=== PATIENT | male | born 1930 | race Caucasian/White ===

== ENCOUNTER 2017-11-25 22:25 | Inpatient (IN) | payer MEDICARE, OTHER ==
[2017-11-25] MEDS: METHYLPREDNISOLONE 125 MG INJ IV (22:34)
[2017-11-25] MEDS: SOD CHLORIDE 0.9% 500 ML IV (22:34)
[2017-11-25] MEDS: ALBUTEROL 0.5% (NEB) 2.5 MG/0.5 ML AMP INH (22:54)
[2017-11-25] MEDS: IPRATROPIUM (NEB) 0.5 MG/2.5 ML AMP INH (22:54)
[2017-11-25] MEDS: LORAZEPAM 2 MG INJ IV (23:57)
[2017-11-26 00:15] LABS: ADD MAN DIFF? NO
[2017-11-26 00:18] LABS: WHITE BLOOD COUNT 8.7 10^3/ul (4.8-10.8)
[2017-11-26 00:18] LABS: BASOPHIL # 0.1 10^3/ul (0.0-0.1); BASOPHILS % 0.8 % (0.0-2.0); EOSINOPHILS # 0.1 10^3/ul (0.0-0.5); EOSINOPHILS % 1.5 % (0.0-7.0); HEMATOCRIT 31.7 % (42.0-52.0); HEMOGLOBIN 9.9 g/dl (14.0-18.0); LYMPHOCYTES % 22.5 % (15.0-51.0); MEAN CORPUSCULAR HGB CONC 31.2 g/dl (32.0-37.0); MEAN CORPUSCULAR VOLUME 99.4 fl (82.0-101.0); MEAN PLATELET VOLUME 10.3 fl (7.4-10.4); MONOCYTE # 0.8 10^3/ul (0.3-0.9); MONOCYTES % 9.4 % (0.0-11.0); NEUTROPHIL # 5.6 10^3/ul (1.6-7.5); PLATELET COUNT 189 10^3/UL (140-415); RED BLOOD COUNT 3.19 10^6/ul (4.70-6.10); RED CELL DISTRIBUTION WIDTH 13.7 % (11.5-14.5)
[2017-11-26 00:48] LABS: ALANINE AMINOTRANSFERASE 37 IU/L (13-69); ALBUMIN 3.9 g/dl (3.3-4.9); ALBUMIN/GLOBULIN RATIO 0.81; ALKALINE PHOSPHATASE 122 IU/L (42-121); ANION GAP 21 (8-16); ASPARTATE AMINO TRANSFERASE 49 IU/L (15-46); BILIRUBIN,INDIRECT 0.4 mg/dl (0-1.1); BILIRUBIN,TOTAL 0.4 mg/dl (0.2-1.3); BLOOD UREA NITROGEN 28 mg/dl (7-20); CALCIUM 9.2 mg/dl (8.4-10.2); CARBON DIOXIDE 24 mmol/L (21-31); CHLORIDE 109 mmol/L (97-110); CREATININE 1.57 mg/dl (0.61-1.24); GLUCOSE 140 mg/dl (70-220); LIPASE 141 U/L (23-300); SODIUM 150 mmol/L (135-144); TOTAL PROTEIN 8.7 g/dl (6.1-8.1)
[2017-11-26 00:57] LABS: B-TYPE NATRIURETIC PEPTIDE 17500 PG/ML (0-450)
[2017-11-26 01:05] LABS: TROPONIN-I 0.128 ng/ml (0.00-0.12)
[2017-11-26] MEDS: ASPIRIN 81 MG TAB PO (01:36)
[2017-11-26] MEDS: FUROSEMIDE 40 MG INJ IV (01:45)
[2017-11-26] MEDS ORDERED: NACL 0.9% 3 ML SYG IV (02:30)
[2017-11-26] MEDS ORDERED: DOCUSATE SODIUM 100 MG CAP PO (02:30)
[2017-11-26] MEDS ORDERED: BISACODYL (EC) 5 MG TAB PO (02:30)
[2017-11-26] MEDS ORDERED: ONDANSETRON 4 MG INJ IV (02:30)
[2017-11-26] MEDS: ALBUMIN HUMAN 25% 100 ML IV ×4 (03:33→13:01)
[2017-11-26] MEDS: PANTOPRAZOLE 40 MG INJ IV (05:56)
[2017-11-26] MEDS ORDERED: ALBUTEROL/IPRATROPIUM (NEB) 3 ML AMP HHN (06:30)
[2017-11-26 06:59] LABS: CREATINE KINASE 40 IU/L (23-200)
[2017-11-26 07:12] LABS: CK INDEX 6.5
[2017-11-26 07:17] LABS: CK-MB 2.58 ng/ml (0.0-2.4)
[2017-11-26 07:37] LABS: CHOL/HDL RATIO 3.8 RATIO; HDL CHOLESTEROL 20 mg/dl (31-75); LDL CHOLESTEROL,CALCULATED 40 mg/dl; TRIGLYCERIDES 87 mg/dl (0-149)
[2017-11-26 07:37] LABS: CHOLESTEROL 77 mg/dl (100-200)
[2017-11-26 08:09] LABS: THYROID STIMULATING HORMONE 0.618 MIU/L (0.465-4.680)
[2017-11-26] MEDS: FUROSEMIDE 40 MG TAB PO (09:47)
[2017-11-26] MEDS: DEXTROSE 5% 1,000 ML IV (09:47)
[2017-11-26] MEDS: CLOPIDOGREL 75 MG TAB PO (09:48)
[2017-11-26 09:57] LABS: OSMOLALITY 307 mOsm/kg (280-295)
[2017-11-26 09:58] LABS: ANION GAP 18 (8-16); BLOOD UREA NITROGEN 28 mg/dl (7-20); CALCIUM 8.4 mg/dl (8.4-10.2); CARBON DIOXIDE 20 mmol/L (21-31); CHLORIDE 111 mmol/L (97-110); GLUCOSE 212 mg/dl (70-220); POTASSIUM 3.7 mmol/L (3.5-5.1); SODIUM 145 mmol/L (135-144)
[2017-11-26 10:04] LABS: ANION GAP 19 (8-16); BLOOD UREA NITROGEN 26 mg/dl (7-20); CARBON DIOXIDE 18 mmol/L (21-31); CHLORIDE 113 mmol/L (97-110); CREATININE 1.29 mg/dl (0.61-1.24); GLUCOSE 181 mg/dl (70-220); POTASSIUM 3.4 mmol/L (3.5-5.1); SODIUM 147 mmol/L (135-144)
[2017-11-26] MEDS: ENOXAPARIN 40 MG/0.4 ML SYG SC (10:20)
[2017-11-26 12:03] LABS: CREATINE KINASE 46 IU/L (23-200)
[2017-11-26 12:16] LABS: CK INDEX 5.6; TROPONIN-I 0.071 ng/ml (0.00-0.12)
[2017-11-26 12:20] LABS: CK-MB 2.59 ng/ml (0.0-2.4)
[2017-11-27 00:41] LABS: ADD UMIC NO; UR ASCORBIC ACID NEGATIVE (NEGATIVE); UR BILIRUBIN (Dip) NEGATIVE (NEGATIVE); UR BLOOD (Dip) NEGATIVE (NEGATIVE); UR CLARITY CLEAR (CLEAR); UR COLOR YELLOW (YELLOW); UR GLUCOSE (Dip) NEGATIVE (NEGATIVE); UR KETONES (Dip) NEGATIVE (NEGATIVE); UR LEUKOCYTE ESTERASE (Dip) NEGATIVE Leu/ul (NEGATIVE); UR NITRITE (Dip) NEGATIVE (NEGATIVE); UR TOTAL PROTEIN (Dip) NEGATIVE (NEGATIVE); UR UROBILINOGEN (Dip) NEGATIVE (NEGATIVE)
[2017-11-27 02:45] LABS: CREATININE,URINE RANDOM 60.82 mg/dl (20-370)
[2017-11-27 02:45] LABS: SODIUM,URINE RANDOM 80 mmol/L (30-90)
[2017-11-27 06:03] LABS: OSMOLALITY,URINE 360 mOsm/kg (250-1200)
[2017-11-27] MEDS: PANTOPRAZOLE 40 MG INJ IV (06:23)
[2017-11-27 06:51] LABS: ADD MAN DIFF? NO
[2017-11-27 06:58] LABS: BASOPHILS % 0.2 % (0.0-2.0); HEMATOCRIT 27.9 % (42.0-52.0); HEMOGLOBIN 8.9 g/dl (14.0-18.0); LYMPHOCYTES # 1.1 10^3/ul (0.8-2.9); LYMPHOCYTES % 9.8 % (15.0-51.0); MEAN CORPUSCULAR HEMOGLOBIN 31.4 pg (29.0-33.0); MEAN CORPUSCULAR HGB CONC 31.9 g/dl (32.0-37.0); MEAN CORPUSCULAR VOLUME 98.6 fl (82.0-101.0); MEAN PLATELET VOLUME 10.7 fl (7.4-10.4); MONOCYTE # 0.9 10^3/ul (0.3-0.9); MONOCYTES % 8.3 % (0.0-11.0); NEUTROPHIL # 9.1 10^3/ul (1.6-7.5); NEUTROPHILS % 81.1 % (39.0-77.0); PLATELET COUNT 175 10^3/UL (140-415); RED BLOOD COUNT 2.83 10^6/ul (4.70-6.10)
[2017-11-27 06:58] LABS: WHITE BLOOD COUNT 11.3 10^3/ul (4.8-10.8)
[2017-11-27 07:29] LABS: PHOSPHORUS 4.4 mg/dl (2.5-4.9)
[2017-11-27 07:29] LABS: MAGNESIUM 1.9 mg/dl (1.7-2.5)
[2017-11-27 07:44] LABS: ALANINE AMINOTRANSFERASE 46 IU/L (13-69); ALBUMIN 4.4 g/dl (3.3-4.9); ALBUMIN/GLOBULIN RATIO 1.25; ALKALINE PHOSPHATASE 91 IU/L (42-121); ANION GAP 20 (8-16); ASPARTATE AMINO TRANSFERASE 56 IU/L (15-46); BILIRUBIN,INDIRECT 0.2 mg/dl (0-1.1); BILIRUBIN,TOTAL 0.2 mg/dl (0.2-1.3); BLOOD UREA NITROGEN 42 mg/dl (7-20); CALCIUM 8.7 mg/dl (8.4-10.2); CARBON DIOXIDE 22 mmol/L (21-31); CHLORIDE 110 mmol/L (97-110); CREATININE 2.03 mg/dl (0.61-1.24); GLUCOSE 139 mg/dl (70-220); POTASSIUM 4.3 mmol/L (3.5-5.1); SODIUM 148 mmol/L (135-144); TOTAL PROTEIN 7.9 g/dl (6.1-8.1)
[2017-11-27 08:43] LABS: HEMOGLOBIN A1C 6.6 % (0-5.9)
[2017-11-27] MEDS ORDERED: FUROSEMIDE 20 MG INJ IV (09:30)
[2017-11-27] MEDS: CLOPIDOGREL 75 MG TAB PO (09:46)
[2017-11-27] MEDS: DEXTROSE 5% 1,000 ML IV (09:47)
[2017-11-27] MEDS: ENOXAPARIN 40 MG/0.4 ML SYG SC (09:50)
[2017-11-28] MEDS: DEXTROSE 5% 1,000 ML IV ×2 (01:36→12:10)
[2017-11-28] MEDS: PANTOPRAZOLE 40 MG INJ IV (05:18)
[2017-11-28 08:12] LABS: ADD MAN DIFF? NO
[2017-11-28 08:19] LABS: BASOPHILS % 0.4 % (0.0-2.0); EOSINOPHILS # 0.1 10^3/ul (0.0-0.5); EOSINOPHILS % 0.7 % (0.0-7.0); HEMATOCRIT 28.9 % (42.0-52.0); HEMOGLOBIN 9.1 g/dl (14.0-18.0); LYMPHOCYTES # 1.5 10^3/ul (0.8-2.9); LYMPHOCYTES % 17.4 % (15.0-51.0); MEAN CORPUSCULAR HGB CONC 31.5 g/dl (32.0-37.0); MEAN CORPUSCULAR VOLUME 98.3 fl (82.0-101.0); MEAN PLATELET VOLUME 10.5 fl (7.4-10.4); MONOCYTE # 1.1 10^3/ul (0.3-0.9); MONOCYTES % 12.5 % (0.0-11.0); NEUTROPHIL # 5.8 10^3/ul (1.6-7.5); NEUTROPHILS % 68.2 % (39.0-77.0); PLATELET COUNT 183 10^3/UL (140-415); RED BLOOD COUNT 2.94 10^6/ul (4.70-6.10); RED CELL DISTRIBUTION WIDTH 14.3 % (11.5-14.5)
[2017-11-28 08:19] LABS: WHITE BLOOD COUNT 8.6 10^3/ul (4.8-10.8)
[2017-11-28 09:00] LABS: ANION GAP 21 (8-16); BLOOD UREA NITROGEN 47 mg/dl (7-20); CALCIUM 8.8 mg/dl (8.4-10.2); CARBON DIOXIDE 21 mmol/L (21-31); CHLORIDE 110 mmol/L (97-110); CREATININE 1.88 mg/dl (0.61-1.24); GLUCOSE 138 mg/dl (70-220); PHOSPHORUS 3.6 mg/dl (2.5-4.9); POTASSIUM 3.7 mmol/L (3.5-5.1); SODIUM 148 mmol/L (135-144)
[2017-11-28] MEDS: ENOXAPARIN 40 MG/0.4 ML SYG SC (09:00)
[2017-11-28] MEDS: CLOPIDOGREL 75 MG TAB PO (09:05)
[2017-11-28] MEDS: INFLUENZA VIRUS VACCINE 0.5 ML (DISPENSING) IM* (09:12)
[2017-11-28] MEDS: FUROSEMIDE 20 MG INJ IV ×2 (10:48→17:39)
[2017-11-28 14:26] LABS: CREATININE, RANDOM URINE 69 mg/dL (20-370); MICROALBUMIN 3.4 mg/dL; MICROALBUMIN/CREATININE RATIO 49 (<30)
[2017-11-29] MEDS: DEXTROSE 5% 1,000 ML IV ×2 (01:30→06:20)
[2017-11-29] MEDS: FUROSEMIDE 20 MG INJ IV ×2 (05:53→17:59)
[2017-11-29] MEDS: PANTOPRAZOLE 40 MG INJ IV (05:54)
[2017-11-29 08:22] LABS: ANION GAP 20 (8-16); BLOOD UREA NITROGEN 45 mg/dl (7-20); CALCIUM 8.4 mg/dl (8.4-10.2); CARBON DIOXIDE 24 mmol/L (21-31); CHLORIDE 108 mmol/L (97-110); CREATININE 1.89 mg/dl (0.61-1.24); GLUCOSE 138 mg/dl (70-220); MAGNESIUM 1.9 mg/dl (1.7-2.5); PHOSPHORUS 4.2 mg/dl (2.5-4.9); POTASSIUM 3.8 mmol/L (3.5-5.1); SODIUM 148 mmol/L (135-144)
[2017-11-29] MEDS: CLOPIDOGREL 75 MG TAB PO (09:11)
[2017-11-29] MEDS: ENOXAPARIN 40 MG/0.4 ML SYG SC (09:15)
[2017-11-29] MEDS: METOLAZONE 2.5 MG TAB PO (09:30)
[2017-11-30] MEDS: DEXTROSE 5% 1,000 ML IV (02:40)
[2017-11-30] MEDS: FUROSEMIDE 20 MG INJ IV (05:28)
[2017-11-30] MEDS: PANTOPRAZOLE 40 MG INJ IV (05:28)
[2017-11-30] MEDS: CLOPIDOGREL 75 MG TAB PO (08:56)
[2017-11-30] MEDS: BUMETANIDE 1 MG TAB PO ×2 (08:56→18:40)
[2017-11-30 08:58] LABS: ANION GAP 20 (8-16); BLOOD UREA NITROGEN 45 mg/dl (7-20); CALCIUM 8.7 mg/dl (8.4-10.2); CARBON DIOXIDE 26 mmol/L (21-31); CHLORIDE 103 mmol/L (97-110); CREATININE 1.81 mg/dl (0.61-1.24); GLUCOSE 155 mg/dl (70-220); MAGNESIUM 1.8 mg/dl (1.7-2.5); PHOSPHORUS 3.7 mg/dl (2.5-4.9); POTASSIUM 3.3 mmol/L (3.5-5.1); SODIUM 146 mmol/L (135-144)
[2017-11-30] MEDS: GUAIFENESIN/DM 5ML CUP PO (18:40)
[2017-11-30] MEDS: ACETAMINOPHEN 325 MG TAB PO (20:06)
[2017-11-30] MEDS: POTASSIUM CHLORIDE (SR) 20 MEQ TAB PO (20:52)
[2017-12-01] MEDS: DEXTROSE 5% 1,000 ML IV (00:25)
[2017-12-01] MEDS: GUAIFENESIN/DM 5ML CUP PO ×2 (00:35→05:00)
[2017-12-01] MEDS: BUMETANIDE 1 MG TAB PO ×2 (06:08→18:24)
[2017-12-01] MEDS: PANTOPRAZOLE 40 MG INJ IV (06:08)
[2017-12-01 06:31] LABS: ADD MAN DIFF? NO
[2017-12-01 06:37] LABS: ABNORMAL IP MESSAGE 1; BASOPHIL # 0.1 10^3/ul (0.0-0.1); BASOPHILS % 0.6 % (0.0-2.0); EOSINOPHILS # 0.1 10^3/ul (0.0-0.5); EOSINOPHILS % 0.9 % (0.0-7.0); HEMATOCRIT 34.5 % (42.0-52.0); LYMPHOCYTES # 1.9 10^3/ul (0.8-2.9); LYMPHOCYTES % 12.7 % (15.0-51.0); MEAN CORPUSCULAR HEMOGLOBIN 30.8 pg (29.0-33.0); MEAN CORPUSCULAR HGB CONC 31.9 g/dl (32.0-37.0); MEAN CORPUSCULAR VOLUME 96.6 fl (82.0-101.0); MEAN PLATELET VOLUME 10.1 fl (7.4-10.4); MONOCYTE # 1.5 10^3/ul (0.3-0.9); MONOCYTES % 10.1 % (0.0-11.0); NEUTROPHIL # 11.2 10^3/ul (1.6-7.5); NEUTROPHILS % 74.9 % (39.0-77.0); PLATELET COUNT 258 10^3/UL (140-415); POSITIVE DIFF @See below; RED BLOOD COUNT 3.57 10^6/ul (4.70-6.10); RED CELL DISTRIBUTION WIDTH 14.2 % (11.5-14.5)
[2017-12-01 07:10] LABS: ANION GAP 21 (8-16); BLOOD UREA NITROGEN 47 mg/dl (7-20); CALCIUM 9.8 mg/dl (8.4-10.2); CARBON DIOXIDE 28 mmol/L (21-31); CHLORIDE 99 mmol/L (97-110); CREATININE 1.87 mg/dl (0.61-1.24); GLUCOSE 183 mg/dl (70-220); MAGNESIUM 1.9 mg/dl (1.7-2.5); PHOSPHORUS 3.2 mg/dl (2.5-4.9); POTASSIUM 3.7 mmol/L (3.5-5.1); SODIUM 144 mmol/L (135-144)
[2017-12-01] MEDS: CLOPIDOGREL 75 MG TAB PO (09:19)
[2017-12-01] MEDS: GUAIFENESIN 20 MG/ML 5ML CUP PO (09:19)
[2017-12-01 12:30] LABS: ADD UMIC YES; UR ASCORBIC ACID NEGATIVE (NEGATIVE); UR BACTERIA FEW /HPF (NONE SEEN); UR BILIRUBIN (Dip) NEGATIVE (NEGATIVE); UR BLOOD (Dip) 2+ mg/dL (NEGATIVE); UR CLARITY CLEAR (CLEAR); UR COLOR YELLOW (YELLOW); UR GLUCOSE (Dip) NEGATIVE (NEGATIVE); UR HYALINE CAST FEW /HPF (NONE SEEN); UR KETONES (Dip) NEGATIVE (NEGATIVE); UR LEUKOCYTE ESTERASE (Dip) 1+ Leu/ul (NEGATIVE); UR MUCUS FEW /HPF (NONE SEEN); UR NITRITE (Dip) NEGATIVE (NEGATIVE); UR RBC 7 /HPF (0-5); UR SPECIFIC GRAVITY (Dip) 1.008 (1.003-1.030); UR TOTAL PROTEIN (Dip) NEGATIVE (NEGATIVE); UR UROBILINOGEN (Dip) NEGATIVE (NEGATIVE); UR WBC 10 /HPF (0-5)
[2017-12-02] MEDS: GUAIFENESIN/DM 5ML CUP PO (00:29)
[2017-12-02] MEDS: ACETAMINOPHEN 325 MG TAB PO ×2 (00:29→21:25)
[2017-12-02] MEDS: DEXTROSE 5% 1,000 ML IV (00:29)
[2017-12-02] MEDS: PANTOPRAZOLE 40 MG INJ IV (06:18)
[2017-12-02] MEDS: BUMETANIDE 1 MG TAB PO (06:23)
[2017-12-02 06:46] LABS: ADD MAN DIFF? NO
[2017-12-02 07:05] LABS: ABNORMAL IP MESSAGE 1; BASOPHIL # 0.1 10^3/ul (0.0-0.1); BASOPHILS % 0.4 % (0.0-2.0); EOSINOPHILS % 0.1 % (0.0-7.0); HEMATOCRIT 36.2 % (42.0-52.0); HEMOGLOBIN 11.7 g/dl (14.0-18.0); LYMPHOCYTES # 1.8 10^3/ul (0.8-2.9); LYMPHOCYTES % 9.7 % (15.0-51.0); MEAN CORPUSCULAR HGB CONC 32.3 g/dl (32.0-37.0); MEAN PLATELET VOLUME 10.1 fl (7.4-10.4); MONOCYTES % 10.9 % (0.0-11.0); NEUTROPHIL # 14.6 10^3/ul (1.6-7.5); NEUTROPHILS % 78.3 % (39.0-77.0); PLATELET COUNT 240 10^3/UL (140-415); POSITIVE DIFF @See below; RED BLOOD COUNT 3.77 10^6/ul (4.70-6.10)
[2017-12-02 07:05] LABS: WHITE BLOOD COUNT 18.6 10^3/ul (4.8-10.8)
[2017-12-02 07:16] LABS: ANION GAP 22 (8-16); BLOOD UREA NITROGEN 56 mg/dl (7-20); CALCIUM 9.1 mg/dl (8.4-10.2); CARBON DIOXIDE 24 mmol/L (21-31); CHLORIDE 96 mmol/L (97-110); CREATININE 2.02 mg/dl (0.61-1.24); GLUCOSE 180 mg/dl (70-220); MAGNESIUM 1.8 mg/dl (1.7-2.5); PHOSPHORUS 3.3 mg/dl (2.5-4.9); POTASSIUM 3.5 mmol/L (3.5-5.1); SODIUM 138 mmol/L (135-144)
[2017-12-02] MEDS: CLOPIDOGREL 75 MG TAB PO (09:00)
[2017-12-02] MEDS: CEFTRIAXONE 1 GM/50 ML (PMX) 50 ML IVPB (11:06)
[2017-12-02] MEDS: AZITHROMYCIN 500MG/NS (PMX) 250 ML IVPB (12:11)
[2017-12-03] MEDS: DEXTROSE 5% 1,000 ML IV (00:56)
[2017-12-03] MEDS: PANTOPRAZOLE 40 MG INJ IV (06:14)
[2017-12-03 07:51] LABS: ADD MAN DIFF? NO
[2017-12-03 08:03] LABS: WHITE BLOOD COUNT 17.4 10^3/ul (4.8-10.8)
[2017-12-03 08:03] LABS: ABNORMAL IP MESSAGE 1; BASOPHIL # 0.1 10^3/ul (0.0-0.1); BASOPHILS % 0.5 % (0.0-2.0); EOSINOPHILS # 0.2 10^3/ul (0.0-0.5); EOSINOPHILS % 1.3 % (0.0-7.0); HEMATOCRIT 32.6 % (42.0-52.0); HEMOGLOBIN 10.3 g/dl (14.0-18.0); LYMPHOCYTES # 1.8 10^3/ul (0.8-2.9); LYMPHOCYTES % 10.6 % (15.0-51.0); MEAN CORPUSCULAR HEMOGLOBIN 30.3 pg (29.0-33.0); MEAN CORPUSCULAR HGB CONC 31.6 g/dl (32.0-37.0); MEAN CORPUSCULAR VOLUME 95.9 fl (82.0-101.0); MEAN PLATELET VOLUME 10.5 fl (7.4-10.4); MONOCYTES % 11.6 % (0.0-11.0); NEUTROPHIL # 13.1 10^3/ul (1.6-7.5); NEUTROPHILS % 75.4 % (39.0-77.0); PLATELET COUNT 226 10^3/UL (140-415); POSITIVE DIFF @See below
[2017-12-03 08:21] LABS: ANION GAP 20 (8-16); BLOOD UREA NITROGEN 65 mg/dl (7-20); CALCIUM 8.7 mg/dl (8.4-10.2); CARBON DIOXIDE 26 mmol/L (21-31); CHLORIDE 96 mmol/L (97-110); CREATININE 2.23 mg/dl (0.61-1.24); GLUCOSE 145 mg/dl (70-220); POTASSIUM 3.2 mmol/L (3.5-5.1); SODIUM 139 mmol/L (135-144)
[2017-12-03] MEDS: BUMETANIDE 1 MG TAB PO (08:42)
[2017-12-03] MEDS: CEFTRIAXONE 1 GM/50 ML (PMX) 50 ML IVPB (08:43)
[2017-12-03] MEDS: CLOPIDOGREL 75 MG TAB PO (08:43)
[2017-12-03] MEDS: AZITHROMYCIN 500MG/NS (PMX) 250 ML IVPB (11:32)
[2017-12-04] MEDS: DEXTROSE 5% 1,000 ML IV (00:42)
[2017-12-04] MEDS: PANTOPRAZOLE (EC) 40 MG TAB PO (05:31)
[2017-12-04 07:27] LABS: ADD MAN DIFF? NO
[2017-12-04 07:33] LABS: BASOPHIL # 0.1 10^3/ul (0.0-0.1); BASOPHILS % 0.5 % (0.0-2.0); EOSINOPHILS # 0.4 10^3/ul (0.0-0.5); EOSINOPHILS % 2.8 % (0.0-7.0); HEMATOCRIT 33.7 % (42.0-52.0); HEMOGLOBIN 11.1 g/dl (14.0-18.0); LYMPHOCYTES # 1.1 10^3/ul (0.8-2.9); LYMPHOCYTES % 8.2 % (15.0-51.0); MEAN CORPUSCULAR HEMOGLOBIN 31.4 pg (29.0-33.0); MEAN CORPUSCULAR HGB CONC 32.9 g/dl (32.0-37.0); MEAN CORPUSCULAR VOLUME 95.2 fl (82.0-101.0); MEAN PLATELET VOLUME 10.7 fl (7.4-10.4); MONOCYTE # 1.1 10^3/ul (0.3-0.9); MONOCYTES % 8.5 % (0.0-11.0); NEUTROPHIL # 10.3 10^3/ul (1.6-7.5); NEUTROPHILS % 79.5 % (39.0-77.0); PLATELET COUNT 229 10^3/UL (140-415); RED BLOOD COUNT 3.54 10^6/ul (4.70-6.10); RED CELL DISTRIBUTION WIDTH 13.8 % (11.5-14.5)
[2017-12-04 08:11] LABS: ANION GAP 20 (8-16); BLOOD UREA NITROGEN 71 mg/dl (7-20); CALCIUM 8.7 mg/dl (8.4-10.2); CARBON DIOXIDE 23 mmol/L (21-31); CHLORIDE 96 mmol/L (97-110); CREATININE 2.18 mg/dl (0.61-1.24); GLUCOSE 173 mg/dl (70-220); POTASSIUM 3.3 mmol/L (3.5-5.1); SODIUM 136 mmol/L (135-144)
[2017-12-04] MEDS: CLOPIDOGREL 75 MG TAB PO (09:29)
[2017-12-04] MEDS: POTASSIUM CHLORIDE 20 MEQ POWDER FOR ORAL SOLN PO (09:29)
[2017-12-04] MEDS: CEFTRIAXONE 1 GM/50 ML (PMX) 50 ML IVPB (09:30)
[2017-12-04] MEDS: AZITHROMYCIN 500MG/NS (PMX) 250 ML IVPB (11:00)
[2017-12-05] MEDS: DEXTROSE 5% 1,000 ML IV (00:24)
[2017-12-05] MEDS: PANTOPRAZOLE (EC) 40 MG TAB PO (06:00)
[2017-12-05 08:24] LABS: ANION GAP 16 (8-16); BLOOD UREA NITROGEN 75 mg/dl (7-20); CARBON DIOXIDE 24 mmol/L (21-31); CHLORIDE 99 mmol/L (97-110); CREATININE 2.16 mg/dl (0.61-1.24); GLUCOSE 144 mg/dl (70-220); PHOSPHORUS 3.4 mg/dl (2.5-4.9); POTASSIUM 3.3 mmol/L (3.5-5.1); SODIUM 136 mmol/L (135-144)
[2017-12-05] MEDS ORDERED: POTASSIUM CHLORIDE (SR) 20 MEQ TAB PO (09:12)
[2017-12-05] MEDS: CLOPIDOGREL 75 MG TAB PO (10:05)
[2017-12-05] MEDS: POTASSIUM CHLORIDE 20 MEQ POWDER FOR ORAL SOLN PO (10:13)
== END 2017-12-05 18:32 | DRG 280 ==
LOC: E/R 22:25 → TEL 11-26 01:33
DX: I50.23 Acute on chronic systolic (congestive) heart failure (principal); I21.4 Non-ST elevation (NSTEMI) myocardial infarction; J18.9 Pneumonia, unspecified organism; J96.00 Acute respiratory failure, unspecified whether with hypoxia or hypercapnia; N17.9 Acute kidney failure, unspecified; E87.0 Hyperosmolality and hypernatremia; F03.90 Unspecified dementia, unspecified severity, without behavioral disturbance, psychotic disturbance, mood disturbance, and anxiety; I48.2 Chronic atrial fibrillation; J06.9 Acute upper respiratory infection, unspecified; J44.9 Chronic obstructive pulmonary disease, unspecified; E86.0 Dehydration; I44.7 Left bundle-branch block, unspecified; I25.10 Atherosclerotic heart disease of native coronary artery without angina pectoris; I25.5 Ischemic cardiomyopathy; D64.9 Anemia, unspecified; E83.9 Disorder of mineral metabolism, unspecified; E87.6 Hypokalemia; Z51.5 Encounter for palliative care; Z95.810 Presence of automatic (implantable) cardiac defibrillator
CPT/HCPCS: 36415; 70450; 71010; 71045; 76775; 80048; 80053; 80061; 81001; 81003; 82043; 82550; 82553; 83036; 83690; 83735; 83880; 83930; 83935; 84100; 84155; 84300; 84443; 84484; 85025; 87040; 87045; 87086; 87400; 90686; 92526; 92610; 93306; 94644; 96374; 96375; 97110; 97162; 97530; 99291-25; J1940